=== PATIENT | male | born 1940 | race Caucasian/White ===

== ENCOUNTER → 2017-03-11 | Outpatient (CLI) | payer MEDICARE, OTHER ==
--- NOTE | 2017-03-11 09:43 | PCVCIMAG ---
APPROVED REPORT Patient Location: Out-Patient Indications Bruit Surgery/Intervention Carotid Stent: right Doppler Spectral Velocity Analysis PSV / EDVPSV / EDV ECA (R) 64 / 8 cm/sECA (L) 106 / 12 cm/s dICA (R) 37 / 17 cm/sdICA (L) 65 / 32 cm/s Ricardo (R) 47 / 23 cm/smICA (L) 65 / 26 cm/s pICA (R) 47 / 19 cm/spICA (L) 59 / 19 cm/s Bulb (R) 51 / 9 cm/sBulb (L) 62 / 18 cm/s dCCA (R) 90 / 27 cm/sdCCA (L) 87 / 22 cm/s mCCA (R) 100 / 22 cm/smCCA (L) 89 / 19 cm/s Vert (R) 39 / 19 cm/sVert (L) 72 / 26 cm/s Findings The right carotid bulb has mild plaque. The right proximal internal carotid artery shows no significant stenosis; widely patent stent. The right common carotid artery shows no significant stenosis. The right external carotid artery shows no significant stenosis. The left carotid bulb has mild plaque. The left proximal internal carotid artery shows <40% stenosis. The left common carotid artery shows no significant stenosis. The left external carotid artery shows no significant stenosis. Conclusion 1. Widely patent right internal carotid artery stent 2. Left internal carotid artery stenosis (<40%) 3. Antegrade vertebral flow
== END | disposition home or self-care (01) ==
LOC: PCVCIMAG 08:46
PROVIDERS: ATTEND Internal Medicine Cardiovascular Disease
DX: I65.23 Occlusion and stenosis of bilateral carotid arteries (principal); I44.0 Atrioventricular block, first degree; I48.0 Paroxysmal atrial fibrillation; I25.10 Atherosclerotic heart disease of native coronary artery without angina pectoris; I10 Essential (primary) hypertension; E78.00 Pure hypercholesterolemia, unspecified; I77.71 Dissection of carotid artery; K21.9 Gastro-esophageal reflux disease without esophagitis; R06.81 Apnea, not elsewhere classified; Z87.891 Personal history of nicotine dependence; Z79.82 Long term (current) use of aspirin; Z79.899 Other long term (current) drug therapy; Z91.013 Allergy to seafood; Z88.1 Allergy status to other antibiotic agents
CPT/HCPCS: 80061; 93005; 93880; G0463

== ENCOUNTER → 2017-10-18 | Outpatient (CLI) | payer MEDICARE | END | disposition home or self-care (01) | LOC: PCVCCLINIC 09:53 | DX: I48.0 Paroxysmal atrial fibrillation (principal); I10 Essential (primary) hypertension; E78.00 Pure hypercholesterolemia, unspecified; I77.9 Disorder of arteries and arterioles, unspecified; Z87.891 Personal history of nicotine dependence; Z79.899 Other long term (current) drug therapy; Z79.82 Long term (current) use of aspirin | CPT/HCPCS: 93005; G0463 ==

== ENCOUNTER → 2018-08-05 | Outpatient (CLI) | payer MEDICARE | END | disposition home or self-care (01) | LOC: PCVCCLINIC 11:16 | PROVIDERS: ATTEND Internal Medicine Cardiovascular Disease | DX: I48.0 Paroxysmal atrial fibrillation (principal); E78.00 Pure hypercholesterolemia, unspecified; I10 Essential (primary) hypertension; I65.23 Occlusion and stenosis of bilateral carotid arteries; I25.10 Atherosclerotic heart disease of native coronary artery without angina pectoris; Z79.82 Long term (current) use of aspirin | CPT/HCPCS: 80061; 93005; G0463 ==

== ENCOUNTER → 2018-09-15 | Outpatient (CLI) | payer MEDICARE ==
--- NOTE | 2018-09-15 10:40 | PCVCIMAG ---
EXAM: BILATERAL CAROTID DUPLEX INDICATION: Carotid Occlusive Disease. FINDINGS: Doppler Measurements (centimeters per second): RIGHT: Peak CCA-91, Peak ECA-77, Diastolic ICA-21, Peak ICA-73, ICA/CCA Ratio-0.8. LEFT: Peak CCA-89, Peak ECA-75, Diastolic ICA-31, Peak ICA-85, ICA/CCA Ratio-1.0. RIGHT CAROTID: Previous stent proximal internal carotid artery with satisfactory color flow throughout. The proximal internal carotid artery shows no significant stenosis. The common carotid artery shows no significant stenosis. The external carotid artery shows no significant stenosis. LEFT CAROTID: The carotid bulb has moderate plaque. The proximal internal carotid artery shows <40% stenosis. The common carotid artery shows no significant stenosis. The external carotid artery shows no significant stenosis. Antegrade flow in both vertebral arteries. IMPRESSION: No significant stenosis of the right internal carotid artery with prior stent maintaining satisfactory patency. <40% stenosis of the left internal carotid artery with moderate plaque. LOC:[place] [id number]
--- NOTE | 2018-09-15 12:48 | PCVCIMAG ---
APPROVED REPORT Study performed: 09/15/2018 10:21:30 Exam: Stress Echocardiogram Indication: parox a fib, htn, hlp, hx of carotid stenosis and carotid stent Patient Location: Echo lab Stress Nurse: Maribel Devine RN Status: routine Ht: 6 ft 0 in HR: 70 bpm BP: 124/84 mmHg Rhythm: NSR Procedure The patient underwent an Exercise Stress Test using the Brandon Protocol. Blood pressure, heart rate, and EKG were monitored. An Echocardiogram was performed by food science technician in four stages in quad fashion. At peak stress, four selected images were obtained and placed side by side with resting images for comparison. Stress Test Details Stress Test: Exercise stress testing was performed using a Brandon protocol. HR Resting HR: 70 bpmMax Heart Rate (APMHR): 144 bpm Max HR Achieved: 139 bpmTarget HR (85% APMHR): 122 bpm % of APMHR: 96 Recovery HR: 70 bpm HR response to stress: Normal HR response to stress BP Resting BP: 124/84 mmHg Max BP: 178/78 mmHg Recovery BP: 122/84 mmHg BP response to stress: Normal blood pressure response to stress. ECG Resting ECG: Sinus Rhythm Stress ECG: Sinus Rhythm ST Change: Normal Arrhythmia: occasional isolated PVCs and rare couplet PVCs Recovery ECG: Sinus Rhythm Recovery ST Change: Normal Recovery Arrhythmia: isolated PVC Clinical Reason for Termination: Maximal effort, Dyspnea Stress Symptoms: Dyspnea Exercise duration: 7 min 10 sec Highest Stage Achieved: Stage 3: 3.4 mph at 14% grade. Exercise capacity: 10.1 METs Overall Exercise Capacity for Age: Normal Scale: Active Angina Score: None Pre-Stress Echo The resting Echocardiogram showed normal left ventricular contractility with an estimated Ejection Fraction of about 50-55%. Normal wall motion in all segments on baseline images. Post-Stress Echo The stress Echocardiogram showed normal left ventricular contractility with an estimated Ejection Fraction of about 65%. Normal augmentation of wall motion in all segments on post stress images. Clinical No clinical or ECG evidence for ischemia. Conclusion Clinical Response: Non-ischemic Exercise Capacity: Average Stress ECG Response: Non-ischemic Stress Echo Images: Non-ischemic The left ventricle is normal in size and wall thickness in both the rest and stress images. Other Information Study Quality: Adequate <Conclusion> The left ventricle is normal in size and wall thickness in both the rest and stress images.
== END | disposition home or self-care (01) ==
LOC: PCVCIMAG 09:39
PROVIDERS: ATTEND Internal Medicine Cardiovascular Disease
DX: I25.10 Atherosclerotic heart disease of native coronary artery without angina pectoris (principal); I65.22 Occlusion and stenosis of left carotid artery; I48.91 Unspecified atrial fibrillation; I10 Essential (primary) hypertension; I48.0 Paroxysmal atrial fibrillation; E78.00 Pure hypercholesterolemia, unspecified; I77.71 Dissection of carotid artery; E78.5 Hyperlipidemia, unspecified
CPT/HCPCS: 93325; 93351; 93880